=== PATIENT | male | born 1950 | race Native Hawaiian/Other Pacific Islander ===

== ENCOUNTER 2020-04-28 15:12 | Emergency (ER) | payer BC ==
[~2020-04-28] VITALS: Ht 182.9 cm; Wt 103.4 kg
[2020-04-28 16:05] LABS: PLATELET COUNT 213 K/uL (142-355)
[2020-04-28 16:13] LABS: POTASSIUM 3.3 mmol/L (3.6-5.2); SODIUM 136 mmol/L (136-145)
[2020-04-28 16:21] LABS: PARTIAL THROMBOPLASTIN TIME 26.3 SECONDS (24.5-33.6)
[2020-04-28 17:38] VITALS: BP 125/76; TEMP 97.8
== END 2020-04-28 17:38 | disposition home or self-care (01) ==
LOC: ED 15:12
PROVIDERS: Family Medicine
DX: R07.89 Other chest pain (principal)
CPT/HCPCS: 36415; 80053; 82550; 82553; 84484; 85027; 85610; 85730; 93005; 96372; 99284; J1100; J1885

== ENCOUNTER 2020-06-09 10:10 | Outpatient (CLI) | payer BC, OTHER | END 2020-06-09 23:59 | disposition home or self-care (01) | LOC: INF 10:10 | PROVIDERS: ATTEND Internal Medicine | DX: Z23 Encounter for immunization (principal) | CPT/HCPCS: 96372 ==

== ENCOUNTER 2020-07-07 08:51 | Outpatient (CLI) | payer BC, OTHER | END 2020-07-07 21:40 | disposition home or self-care (01) | LOC: INF 08:51 | PROVIDERS: ATTEND Internal Medicine | DX: Z23 Encounter for immunization (principal) | CPT/HCPCS: 96372 ==